=== PATIENT | female | born 1995 | race African-American/Black ===

== ENCOUNTER 2023-01-26 08:12 | Outpatient (CLI) | payer BC | END 2023-01-26 08:13 | disposition home or self-care (01) | LOC: NM 08:12 | PROVIDERS: ATTEND Internal Medicine Gastroenterology | DX: R11.2 Nausea with vomiting, unspecified (principal); E11.9 Type 2 diabetes mellitus without complications; R10.13 Epigastric pain; R19.7 Diarrhea, unspecified; K30 Functional dyspepsia | CPT/HCPCS: 78264; A9541 ==

== ENCOUNTER 2023-09-26 16:28 | Outpatient (CLI) | payer BC | END 2023-09-26 16:29 | disposition home or self-care (01) | LOC: BICRAD 16:28 | PROVIDERS: ATTEND Internal Medicine Cardiovascular Disease | DX: R07.9 Chest pain, unspecified (principal) | CPT/HCPCS: 71046 ==